=== PATIENT | female | born 1955 | race Caucasian/White ===

== ENCOUNTER 2019-08-03 09:07 | Day surgery (SDC) | payer BC ==
--- NOTE | 2019-08-03 09:34 | HP ---
DATE OF SURGERY: 08/03/2019 HISTORY OF PRESENT ILLNESS: The patient is a 64 year-old female with no prior colonoscopy, no bloody stools, no change in stools. She has had some chronic constipation. 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 Sinus issues in the past. Family history negative for colon cancer. She is in need for screening colonoscopy. PAST MEDICAL HISTORY: PAST SURGICAL HISTORY: Carpal tunnel in the past. Hysterectomy in the past. MEDICATIONS: Fish oil, aspirin, carbidopa levodopa, Claritin. She uses Flonase PRN. ALLERGIES: NKDA. FAMILY HISTORY: Heart disease, Alzheimer's, hypertension, diabetes and cancer but negative for colon cancer. SOCIAL HISTORY: No smoking or alcohol abuse. REVIEW OF SYSTEMS: Fourteen systems reviewed. No chest pain or palpitations. Other systems negative or noncontributory as above and per preadmission questionnaire. PHYSICAL EXAMINATION: GENERAL: No acute distress. HEENT: Sclerae nonicteric. NECK: No JVD. CHEST: Equal excursion, nonlabored breathing. CVS: Regular rate and rhythm. ABDOMEN: Soft. No peritoneal signs. EXTREMITIES: No significant edema. NEURO: Alert, oriented, moving extremities symmetrically. No gross motor deficits noted. RECTAL: Deferred timed to endoscopy exam. IMPRESSION: Need for screening colonoscopy. I feel she is a candidate. She was previously a candidate for it but could not prep cleanse so we rescheduled screening colonoscopy as an outpatient. General risk of bleeding or infection, risk of bowel injury or perforation possibly requiring open procedure, risk of missed or nondiagnosis or incomplete exam possibly requiring barium enema, other studies or procedures, general risk of anesthesia or sedation, risk of bowel prep but not limited to. She understands and agrees to the planned procedure and will proceed with outpatient screening colonoscopy.
[2019-08-03] MEDS: Lactated Ringers 1,000 ML IV SCH (09:53)
[2019-08-03] MEDS ORDERED: Lactated Ringers 1,000 ML IV ONE (11:07)
[2019-08-03] MEDS ORDERED: DIPRIVAN 200 MG/20 ML IV ONE (11:15)
[2019-08-03 12:37] VITALS: BP 135/63; PULSE 79; O2SAT 96
--- NOTE | 2019-08-03 13:48 | OP ---
SURGERY DATE/TIME: 08/03/2019 1108 PREOPERATIVE DIAGNOSIS: Need for screening colonoscopy. POSTOPERATIVE DIAGNOSES: 1) Adequate prep. 2) Few small diverticula. 3) Small internal hemorrhoids. 4) Patchy area of vague inflammation versus normal variation rectum. PROCEDURES: 1) Colonoscopy to cecum. 2) Random cold biopsies rectum to evaluate for microscopic proctitis. SURGEON: Dr. Price Yen. ANESTHESIA: MAC. ESTIMATED BLOOD LOSS: Minimal. INDICATIONS: As noted above. Risks and benefits explained in detail but not limited to and consent obtained. DESCRIPTION OF PROCEDURE AND FINDINGS: The patient is taken to the operating room. MAC anesthesia introduced. After official time out and no disagreement with planned procedure, digital rectal exam did not reveal any rectal masses. Video colonoscope inserted and passed up through the tortuous sigmoid, descending, transverse and ascending colon. Some areas of the colon were really clear. She had other areas that had semi-solid and solid debris. These were suction irrigated as well as possible but did limit the exam for very tiny lesions. Slowly and carefully the scope was able to be navigated around with external pressure. She had quite a tortuous colon. The scope was able to be around to the cecum. Appendiceal orifice and valve well visualized. The scope is slowly and carefully withdrawn. Again suction irrigating out as clear as possible although adequate prep just slightly limiting the exam for very tiny lesions. I did not feel that there were any large polyps, masses or obstructing lesion that could have been missed. The scope is slowly and carefully withdrawn over the next 8 minutes. Again, suction irrigating. She had a few tiny diverticula in the left colon otherwise there were no signs of any large polyps, masses or obstructing lesions. She had some small internal hemorrhoids. A little bit of patchy area of vague possible inflammation versus normal variation versus just prep irrigation in the rectum, some random cold biopsies were taken of this area. It had some brief ooze but seemed to stop. Good hemostasis noted. The scope is withdrawn. The patient tolerated the procedure well. Again, withdrawal time was about 8 minutes. Findings discussed with the family out in the waiting area.
== END 2019-08-03 12:45 | disposition home or self-care (01) ==
LOC: SDC 09:07 → EDSTATUS 09:08 → SDC 12:45
PROVIDERS: ATTEND Surgery
DX: Z12.11 Encounter for screening for malignant neoplasm of colon (principal); K57.30 Diverticulosis of large intestine without perforation or abscess without bleeding; K64.8 Other hemorrhoids; K62.89 Other specified diseases of anus and rectum
CPT/HCPCS: J2704